=== PATIENT | female | born 1960 | race Caucasian/White ===

== ENCOUNTER 2018-04-16 10:33 | Emergency (ER) | END 2018-04-16 13:00 | disposition home or self-care (01) ==

== ENCOUNTER 2018-06-02 22:33 | Emergency (ER) | END 2018-06-03 01:56 | disposition left against medical advice (07) ==

== ENCOUNTER 2019-02-09 13:10 | Emergency (ER) | payer OTHER ==
[~2019-02-09] VITALS: Ht 162.6 cm; Wt 142.4 kg
[~2019-02-09 13:10] MED LIST: BACTDS PO; CEPH-443 PO; HYDR25TA6 PO; IBUP-1561 PO; LISI10TA2 PO; METF-849 PO; OMEP20CA9 PO; PHEN-538 PO; SULF1TAB31 PO
[2019-02-09 13:25] VITALS: BP 146/89; PULSE 81; RESP 18; Ht 162.6 cm; Wt 142.4 kg
--- NOTE | 2019-02-09 15:36 | ERD ---
ER Documentation Chief Complaint Chief Complaint left 1 toe nail pain x 3 days HPI 58-year-old female with a history of diabetes presents with complaint of first toenail pain for the past 3 days. Patient states that she thinks is due to her diabetes. Patient denies any fevers, chills, numbness, weakness, discharge from toenail, edema, erythema. ROS All systems reviewed and are negative except as per history of present illness. Medications Home Meds Active Scripts Sulfamethoxazole/Trimethoprim* (Bactrim Ds* Tablet) 1 Each Tablet, 1 TAB PO BID, #14 TAB Prov:REGINA CHAUDHARY 02/09/19 Cephalexin* (Keflex*) 500 Mg Capsule, 500 MG PO QID for 7 Days, CAP Prov:REGINA CHAUDHARY 02/09/19 Ibuprofen* (Motrin*) 400 Mg Tab, 400 MG PO Q6, #30 TAB Prov:CRYSTAL GLOVER 06/03/18 Phenazopyridine Hcl* (Pyridium*) 200 Mg Tab, 200 MG PO TID PRN for URINARY PAIN, #6 TAB Prov:JUSTIN DAVIS MD 04/16/18 Lisinopril* (Lisinopril*) 10 Mg Tablet, 10 MG PO DAILY, #30 TAB Prov:JUSTIN DAVIS MD 04/16/18 Cephalexin* (Keflex*) 500 Mg Capsule, 500 MG PO QID for 7 Days, CAP Prov:JUSTIN DAVIS MD 04/16/18 Cephalexin* (Keflex*) 500 Mg Capsule, 500 MG PO QID for 10 Days, CAP Prov:GERA ANTOINE NP 01/12/16 Sulfamethoxazole-Trimethoprim* (Bactrim* DS) 800-160 Mg Tab, 1 TAB PO BID for 10 Days, TAB Prov:GERA ANTOINE NP 01/12/16 Hydrochlorothiazide* (Hydrochlorothiazide*) 25 Mg Tab, 50 MG PO DAILY, #30 TAB Prov:ANNELIESE MAYEN MD 09/15/15 Metformin* (Glucophage*) 500 Mg Tab, 500 MG PO BID, #60 TAB Prov:ANNELIESE MAYEN MD 09/15/15 Reported Medications Omeprazole* (Prilosec*) Unknown Strength Capsule., PO DAILY, CAP 01/12/16 [None] No Conflict Check 12/21/11 Allergies Allergies: Coded Allergies: No Known Drug Allergies (Verified Allergy, Unknown, 02/09/19) PMhx/Soc History of Surgery: Yes (GALLBLADDER SURGERY) Anesthesia Reaction: No Hx Neurological Disorder: No Hx Respiratory Disorders: No Hx Cardiac Disorders: Yes (HTN) Hx Psychiatric Problems: No Hx Miscellaneous Medical Probl: No (DIABETES) Hx Alcohol Use: No Hx Substance Use: No Hx Tobacco Use: No Smoking Status: Never smoker FmHx Family History: No diabetes, No coronary disease, No other Physical Exam Vitals Vital Signs Date Temp Pulse Resp B/P (MAP) Pulse Ox O2 O2 Flow FiO2 Time Delivery Rate 02/09/19 98.1 81 18 146/89 100 13:25 (108) Physical Exam Const: No acute distress Head: Atraumatic Eyes: Normal Conjunctiva ENT: Normal External Ears, Nose and Mouth. Neck: Full range of motion. No meningismus. Resp: Clear to auscultation bilaterally Cardio: Regular rate and rhythm, no murmurs Abd: Soft, non tender, non distended. Normal bowel sounds Skin: first toenail appears to be mildly erythematous with tenderness to palpation. There is no edema noted. No signs of ingrown toenail noted. There is no discharge noted. Back: No midline or flank tenderness Ext: No cyanosis, or edema Neur: Awake and alert Psych: Normal Mood and Affect Procedures/MDM MDM: Patient's presentation appears to be consistent with infection of the toena il although I do not see any ingrown toenails with toenail removal and is at this time. Patient will be treated with antibiotics and advised to return to ER if problem continues. The states have low suspicion for acute space infection, osteomyelitis, fracture, abscess, or any emergent condition. Patient advised to also follow-up with enrollment management manager as she has history of diabetes and is more prone to foot problems. At this time, patient is stable for discharge and outpatient management. I have instructed the patient to follow-up with his/her primary care physician in 1-2 days. I have discussed with the patient the possibility of needing to see a specialist for further workup and imaging studies if symptoms persist. I have instructed the patient to promptly return to the ER for any new or worsening symptoms including but not limited to increased pain, fever, nausea, vomiting, weakness or LOC. The patient and/or family expressed understanding of and agreement with this plan. All questions were answered. Home care instructions were provided. Communication with patient both during the exam and instructions for discharge were performed with using a ebay reseller . Patient gave verbal confirmation to the practitioner, through the ebay reseller, that they understood everything that was being said to them. DISCLAIMER: Inadvertent spelling and grammatical errors are likely due to EHR/dictation s oftware use and do not reflect on the overall quality of patient care. Also, please note that the electronic time recorded on this note does not necessarily reflect the actual time of the patient encounter. Departure Diagnosis: Primary Impression: Nail problem Condition: Stable Patient Instructions: Diabetic Foot Care Referrals: [facility] YOU HAVE RECEIVED A MEDICAL SCREENING EXAM AND THE RESULTS INDICATE THAT YOU DO NOT HAVE A CONDITION THAT REQUIRES URGENT TREATMENT IN THE EMERGENCY DEPARTMENT. FURTHER EVALUATION AND TREATMENT OF YOUR CONDITION CAN WAIT UNTIL YOU ARE SEEN IN YOUR DOCTORS OFFICE WITHIN THE NEXT 1-2 DAYS. IT IS YOUR RESPONSIBILITY TO MAKE AN APPOINTMENT FOR FOLOW-UP CARE. IF YOU HAVE A PRIMARY DOCTOR --you should call your primary doctor and schedule an appointment IF YOU DO NOT HAVE A PRIMARY DOCTOR YOU CAN CALL OUR PHYSICIAN REFERRAL HOTLINE AT IF YOU CAN NOT AFFORD TO SEE A PHYSICIAN YOU CAN CHOSE FROM THE FOLLOWING [facility] CL[facility] [address] [facility] [address] [facility] [address] [facility] [address] [facility] [address] [facility]. [facility]. [address] Additional Instructions: FOLLOW UP WITH YOUR PRIMARY CARE PHYSICIAN TOMORROW.Return to this facility if you are not improving as expected. REGINA CHAUDHARY Feb 09, 2019 15:36
== END 2019-02-09 15:03 | disposition home or self-care (01) ==
LOC: FTE 13:10
DX: L60.9 Nail disorder, unspecified (principal); I10 Essential (primary) hypertension; E11.9 Type 2 diabetes mellitus without complications; Z79.84 Long term (current) use of oral hypoglycemic drugs
CPT/HCPCS: 99283